=== PATIENT | male | born 1970 | race Two or more races ===

== ENCOUNTER 2017-10-21 18:03 | Emergency (ER) | payer SELFPAY ==
[~2017-10-21] VITALS: Ht 177.8 cm; Wt 97.8 kg
[~2017-10-21 18:03] MED LIST: No meds per pt.
[2017-10-21 18:08] VITALS: BP 132/87
== END 2017-10-21 19:07 | disposition home or self-care (01) ==
LOC: ED 18:39
DX: S86.912A Strain of unspecified muscle(s) and tendon(s) at lower leg level, left leg, initial encounter (principal); M06.9 Rheumatoid arthritis, unspecified; Z87.891 Personal history of nicotine dependence; X58.XXXA Exposure to other specified factors, initial encounter; Y93.89 Activity, other specified; Y92.89 Other specified places as the place of occurrence of the external cause; Y99.8 Other external cause status
CPT/HCPCS: 99284